=== PATIENT | female | born 1945 | race Caucasian/White ===

== ENCOUNTER 2021-07-03 12:33 | Emergency (ER) | payer OTHER ==
[2021-07-03 14:31] LABS: BASOPHIL 0.4 % (0-2); EOSINOPHIL 0.1 % (0-7); HCT 52.9 % (37.0-47.0); HGB 17.8 g/dl (12.5-16.0); LYMPHOCYTE 9.8 % (15-48); MCHC 33.6 g/dL (32.0-36.0); MCV 89.2 fL (78.0-100.0); MONOCYTE 9.7 % (0-12); MPV 10.7 fL (6.0-9.5); NEUTROPHIL 79.7 % (41-80); NRBC 0; PLT 174 K/uL (150-400); RBC 5.93 M/uL (4.20-5.40); RDW 12.9 % (11.5-14.0); WBC 10.1 K/uL (4.0-10.5)
[2021-07-03 14:54] LABS: ALBUMIN 4.3 g/dL (3.4-5.0); BILIRUBIN - TOTAL 0.9 mg/dL (0.2-1.0); BUN/CREAT RATIO (CALC) 17.6 RATIO; CREATININE 0.91 mg/dL (0.51-0.95); GLOBULIN (CALCULATION) 3.6 g/dL; POTASSIUM 3.9 mmol/L (3.5-5.1); TOTAL PROTEIN 7.9 g/dL (6.4-8.2)
[2021-07-03 15:01] LABS: CORONAVIRUS 2019 SARS-COV-2 NEGATIVE (NEGATIVE); INFLUENZA A NAA NEGATIVE (NEGATIVE)
[2021-07-03] MEDS ORDERED: VENTOLIN HFA IN18 GM INH (17:30)
[2021-07-03] MEDS ORDERED: PREDNISONE 20MG20 MG PO (17:30)
[2021-07-03] MEDS ORDERED: AZITHROMYCIN250 MG PO (17:30)
== END 2021-07-03 18:00 | disposition home or self-care (01) ==
LOC: FER 12:33
PROVIDERS: Emergency Medicine
DX: J20.9 Acute bronchitis, unspecified (principal); Z20.822 Contact with and (suspected) exposure to COVID-19; Z88.5 Allergy status to narcotic agent; Z87.891 Personal history of nicotine dependence
CPT/HCPCS: 36415; 36600; 71250; 71275; 80053; 82803; 84145; 85025; 87070; 87205; 94640; 94664; 94762; J2930; Q9967; U0002